=== PATIENT | male | born 1955 | race Two or more races ===

== ENCOUNTER 2023-05-10 07:22 | Outpatient (CLI) | payer OTHER | END 2023-05-10 07:23 | disposition home or self-care (01) | LOC: NUCLEAR 07:22 | DX: I25.10 Atherosclerotic heart disease of native coronary artery without angina pectoris (principal); I25.82 Chronic total occlusion of coronary artery; C61 Malignant neoplasm of prostate | CPT/HCPCS: 78452; 93017; A9500; J0153 ==

== ENCOUNTER 2024-01-15 08:15 | Inpatient (IN) | payer OTHER ==
[~2024-01-15] VITALS: Ht 170.2 cm; Wt 86.6 kg
[2024-01-15 08:18] LABS: HEMATOCRIT 43.6 % (39.0-48.0); MEAN CELL VOLUME 86.5 fL (80.0-100.00); MEAN CORPUSCULAR HEMOGLOBIN 29.9 pg (27.00-32.0); MEAN CORPUSCULAR HGB CONC 34.5 g/dl (32.0-36.0); PLATELET COUNT 165 K/uL (150-450); RED BLOOD COUNT 5.03 M/uL (4.00-6.00); RED CELL DISTRIBUTION WIDTH 14.3 % (11.5-14.5)
[2024-01-15] MEDS ORDERED: NORVASC10 MG PO (08:31)
[2024-01-15] MEDS ORDERED: CRESTOR40 MG PO (08:31)
[2024-01-15 08:32] VITALS: BP 137/79
[2024-01-15 08:34] LABS: URINE BACTERIA 11.3 uL (0.0-1933); URINE EPITHELIAL CELLS 1.6 uL (0.0-38.8); URINE RBC 16.1 uL (0.0-20.8)
[2024-01-15 08:42] LABS: INR 1.09; PARTIAL THROMBOPLASTIN TIME 30.1 SECONDS (22.0-34.0); PROTHROMBIN TIME 11.8 SECONDS (9.0-11.5)
[2024-01-15 08:43] LABS: CALCIUM 9.7 mg/dL (8.5-10.1); CREATININE SERUM 0.78 mg/dL (0.70-1.30); GFR 98.98; POTASSIUM 3.78 mEq/L (3.5-5.1)
[2024-01-15 08:57] LABS: URINE BILIRRUBIN NEGATIVE (NEGATIVE); URINE BLOOD TRACE; URINE GLUCOSE NEGATIVE (NEGATIVE); URINE KETONE NEGATIVE (NEGATIVE); URINE LEUKOCYTE NEGATIVE; URINE NITRATE NEGATIVE; URINE PROTEIN NEGATIVE (NEGATIVE); URINE UROBILINOGEN 0.2 E.U./dl
[2024-01-15 08:58] LABS: URINE APPEARANCE CLEAR; URINE COLOR YELLOW; URINE WBC 1.3 uL (0.0-23.2)
[2024-01-15 10:07] LABS: RH POSITIVE
[2024-01-24] MEDS ORDERED: ONDANSETRON HCL 2 MG/ML VIAL IV PRN (09:30)
[2024-01-24] MEDS ORDERED: MORPHINE SULFATE 4 MG/ML CARTRIDGE IV PRN (09:45)
[2024-01-24] MEDS ORDERED: ENOXAPARIN SODIUM 40 MG/0.4 ML SYRINGE SUBCUTANEO ONE (11:00)
[2024-01-24] MEDS ORDERED: CEFAZOLIN SODIUM 1,000 MG VIAL IV ONE (11:00)
[2024-01-24] MEDS ORDERED: SIMETHICONE 125 MG CAPSULE PO SCH (13:00)
[2024-01-24] MEDS ORDERED: SUGAMMADEX SODIUM 200 MG/2 ML VIAL IV ONE (13:30)
[2024-01-24] MEDS ORDERED: MORPHINE SULFATE 2 MG/ML CARTRIDGE IV ONE (15:45)
[2024-01-24] MEDS ORDERED: FAMOtidine 20 MG TABLET PO SCH (17:00)
[2024-01-24] MEDS ORDERED: DOCUSATE SODIUM 100MG CAP PO SCH (17:00)
[2024-01-24] MEDS ORDERED: CEFAZOLIN SODIUM 1,000 MG VIAL IV SCH (17:00)
[2024-01-24 18:04] VITALS: BP 137/79; O2SAT 98
[2024-01-24] MEDS ORDERED: OxyCODONE HCL/APAP UD (PERCOCET) PO PRN (23:45)
[2024-01-24] MEDS ORDERED: OxyCODONE HCL/APAP UD (PERCOCET) PO STA (23:49)
[2024-01-25 00:50] VITALS: BP 136/77; O2SAT 96
[2024-01-25 08:00] VITALS: BP 129/80; O2SAT 96
[2024-01-25 08:34] LABS: CREATININE SERUM 0.59 mg/dL (0.70-1.30); GFR 136.6; POTASSIUM 3.71 mEq/L (3.5-5.1)
[2024-01-25] MEDS ORDERED: ENOXAPARIN SODIUM 40 MG/0.4 ML SYRINGE SUBCUTANEO SCH (09:00)
[2024-01-25] MEDS ORDERED: DEXTROSE 5 %-0.45 % SOD CHLORD 1,000 ML IV SCH (09:00)
[2024-01-25] MEDS ORDERED: AMLODIPINE BESYLATE 10 MG TABLET PO SCH (09:00)
[2024-01-25 09:40] LABS: HEMATOCRIT 34.8 % (39.0-48.0); HEMOGLOBIN 11.9 g/dL (13-16.00); MEAN CELL VOLUME 86.6 fL (80.0-100.00); MEAN CORPUSCULAR HEMOGLOBIN 29.6 pg (27.00-32.0); MEAN CORPUSCULAR HGB CONC 34.1 g/dl (32.0-36.0); PLATELET COUNT 147 K/uL (150-450); RED BLOOD COUNT 4.02 M/uL (4.00-6.00)
[2024-01-25 16:16] VITALS: BP 117/81; O2SAT 98
[2024-01-26] VITALS: BP 119/67; O2SAT 95
[2024-01-26] MEDS ORDERED: levoFLOXacin 500 MG TABLET PO SCH (12:00)
[2024-01-26 14:53] VITALS: BP 119/79; O2SAT 97
[2024-01-26 15:37] VITALS: BP 148/85; O2SAT 98
[2024-01-27] VITALS: BP 126/83; O2SAT 95
[2024-01-27 08:00] VITALS: BP 129/73; O2SAT 98
== END 2024-01-27 11:15 | disposition home or self-care (01) | DRG 708 ==
LOC: SURH 01-24 05:32 → O/R 01-24 05:32 → SURH 01-24 07:00
PROVIDERS: ADMIT Urology; ATTEND Urology
PROC: 07BC0ZZ Excision of Pelvis Lymphatic, Open Approach (ICD-10-PCS; 2024-01-24)
PROC: 0VT00ZZ Resection of Prostate, Open Approach (ICD-10-PCS; principal; 2024-01-24 07:00)
DX: C61 Malignant neoplasm of prostate (principal)